=== PATIENT | male | born 1955 | race Caucasian/White ===

== ENCOUNTER 2022-08-20 19:09 | Emergency (ER) | payer OTHER ==
[~2022-08-20] VITALS: Ht 175.3 cm; Wt 96.2 kg
[~2022-08-20 19:09] MED LIST: ASPI81CH PO; ATORVASTATIN CA40 MG; Daily Multiple1 EACH PO; LISI5; METF500 PO; METO25ER PO; MOVE FREE ULTR1 EACH PO; NAPR220; Percocet 10-321 EACH PO; Prinivil10 MG PO; Zofran Odt4 MG SL; [UNRECOGNIZED DRUG - OTHER]
[2022-08-21] MEDS ORDERED: PRED20 PO (00:09)
== END 2022-08-21 00:22 | disposition home or self-care (01) ==
LOC: ER 19:09
DX: T63.441A Toxic effect of venom of bees, accidental (unintentional), initial encounter (principal); R55 Syncope and collapse; Z79.82 Long term (current) use of aspirin; Z79.84 Long term (current) use of oral hypoglycemic drugs; Z79.899 Other long term (current) drug therapy
CPT/HCPCS: 70450; 93005; 93010; 99284-25; A9270; J7512